=== PATIENT | male | born 1995 | race Caucasian/White ===

== ENCOUNTER → 2017-10-05 | Outpatient (CLI) | payer OTHER ==
--- NOTE | 2017-10-05 10:47 | RADIOLOGY REPORT (SQ) ---
EXAM DESCRIPTION: DUPLEX ART/DINORAH FLOW COMPLETE COMPLETED DATE/TIME: 10/05/2017 9:26 am REASON FOR STUDY: ATHEROSCLEROSIS OF RENAL ARTERY I70.1 ATHEROSCLEROSIS OF RENAL ARTERY COMPARISON: None. TECHNIQUE: Realtime and static grayscale images acquired. Selected color Doppler, velocities and spe ctral images recorded. LIMITATIONS: None. FINDINGS: RIGHT KIDNEY: RENAL ARTERY VELOCITIES: 47.3 cm/sec. Segmental artery velocity 57.0 cm/sec. RENAL VEIN: Color doppler flow present, patent. VELOCITY RATIO: 0.73. Normal waveforms. KIDNEY: The right kidney measures 10.4 cm, normal size. No significant pathology. LEFT KIDNEY: RENAL ARTERY VELOCITIES: 43.3 cm/sec. Segmental artery velocity 47.8 cm/sec. RENAL VEIN: Color doppler flow present, patent. VELOCITY RATIO: 0.67. Normal waveforms. KIDNEY: The left kidney measures 9.9 cm, normal size. No significant pathology. BLADDER: Normal. OTHER: No other significant finding. IMPRESSION: NO DOPPLER EVIDENCE OF HEMODYNAMICALLY SIGNIFICANT RENAL ARTERY STENOSIS. COMMENT: NORMAL RENAL ARTERY/AORTA VELOCITY RATIO IS LESS THAN OR EQUAL TO 3.5. TECHNICAL DOCUMENTATION: JOB ID: [id number] [facility]- All Rights Reserved Reading location - IP/workstation name: [email or web address]
== END ==
LOC: RAD 08:23
DX: I70.1 Atherosclerosis of renal artery (principal)
CPT/HCPCS: 93975